=== PATIENT | female | born 1975 | race Asian ===

== ENCOUNTER 2023-03-04 11:34 | Day surgery (SDC) | payer OTHER ==
[~2023-03-04] VITALS: Ht 152.4 cm; Wt 57.2 kg
[~2023-03-04 11:34] MED LIST: NS 1,000 ML IV ONE; TOPI-21 PO; VITMTA PO
[2023-03-04] MEDS ORDERED: propofoL 200 MG/20 ML VIAL As Ordered ONE (13:14)
[2023-03-04] MEDS ORDERED: fentaNYL 100 MCG/2 ML INJECTION As Ordered ONE (13:14)
[2023-03-04 13:34] VITALS: TEMP 97.3
[2023-03-04 13:40] VITALS: BP 105/58; O2SAT 100
== END 2023-03-04 14:02 | disposition home or self-care (01) ==
LOC: M OPP 11:34
PROVIDERS: ATTEND Internal Medicine Gastroenterology
DX: K31.89 Other diseases of stomach and duodenum (principal); K22.89 Other specified disease of esophagus; K30 Functional dyspepsia; B96.81 Helicobacter pylori [H. pylori] as the cause of diseases classified elsewhere; Z09 Encounter for follow-up examination after completed treatment for conditions other than malignant neoplasm
CPT/HCPCS: 43239; 88305; J3010